=== PATIENT | female | born 1955 | race Asian ===

== ENCOUNTER 2022-03-17 15:38 | Emergency (ER) | payer BC ==
[~2022-03-17] VITALS: Ht 162.6 cm; Wt 65.8 kg
[2022-03-17 16:33] VITALS: BP_SYST 139
[2022-03-17] MEDS ORDERED: IBUPROFEN 600 MG TABLET PO ONE (17:00)
--- NOTE | 2022-03-17 18:00 | NUR ---
Patient triaged and placed in waiting room. VSS and patient appears in no acute distress at this time. Accompanied by self , awaiting available bed, and MD notified of need for MSE.
--- NOTE | 2022-03-17 19:05 | NUR ---
Dr Do evaluating patient in the triage room
--- NOTE | 2022-03-17 19:25 | NUR ---
Pt brought by self, A&Ox4, pt presents to ER with pain R wrist after mechanical fall, pt states she was hanging the [employer] light and fell , no KO , denies other injuries, will cont to monitor.
[2022-03-17 19:45] VITALS: BP_SYST 139
--- NOTE | 2022-03-17 19:45 | NUR ---
Patient given written and verbal discharge instructions and verbalizes understanding. ER MD discussed with patient the results and treatment provided. Patient in stable condition. ID arm band removed. No Rx given. Patient educated on pain management and to follow up with PMD. Pain Scale 0/10 . Opportunity for questions provided and answered. Medication side effect fact sheet provided.
[2022-03-17] MEDS ORDERED: IBUP-1971 PO (19:46)
== END 2022-03-17 19:45 | disposition home or self-care (01) ==
LOC: SED 15:38
DX: S63.501A Unspecified sprain of right wrist, initial encounter (principal); Z79.899 Other long term (current) drug therapy; W01.0XXA Fall on same level from slipping, tripping and stumbling without subsequent striking against object, initial encounter; Y93.89 Activity, other specified; Y92.89 Other specified places as the place of occurrence of the external cause; Y99.8 Other external cause status
CPT/HCPCS: 99283